=== PATIENT | female | born 2000 | race Caucasian/White ===

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

== ENCOUNTER 2019-07-16 09:03 | Emergency (ER) | payer OTHER ==
[~2019-07-16] VITALS: Ht 154.9 cm; Wt 61.7 kg
[2019-07-16 09:13] VITALS: BP 126/69; Ht 154.9 cm; Wt 61.7 kg
[2019-07-16 11:06] LABS: microscopic required? YES; urine erythrocyte TRACE (NEGATIVE)
== END 2019-07-16 12:57 | disposition home or self-care (01) ==
LOC: ED 09:03
PROVIDERS: Emergency Medicine
DX: N83.201 Unspecified ovarian cyst, right side (principal); N39.0 Urinary tract infection, site not specified; K59.00 Constipation, unspecified
CPT/HCPCS: 87491; 87591